=== PATIENT | male | born 1950 | race Caucasian/White ===

== ENCOUNTER → 2016-07-23 | Outpatient (CLI) | payer MEDICARE, MEDICAID ==
[2016-07-23 12:39] LABS: ALBUMIN 3.4 GM/DL (3.2-5.2); ALBUMIN/GLOBULIN RATIO 1.03 (1.00-1.93); ALKALINE PHOSPHATASE 98 U/L (45-117); ALT/SGPT 31 U/L (12-78); ANION GAP 6 MEQ/L (8-16); AST/SGOT 27 U/L (15-37); BILIRUBIN,TOTAL 0.4 MG/DL (0.2-1.0); BLOOD UREA NITROGEN 15 MG/DL (7-18); CALCIUM LEVEL 8.5 MG/DL (8.8-10.2); CARBON DIOXIDE LEVEL 29 MEQ/L (21-32); CHLORIDE LEVEL 105 MEQ/L (98-107); CHOLESTEROL LEVEL 142 MG/DL (<200); CREATININE FOR GFR 0.65 MG/DL (0.70-1.30); GLOMERULAR FILTRATION RATE > 60.0 (>49); GLUCOSE, FASTING 90 MG/DL (80-110); SODIUM LEVEL 140 MEQ/L (136-145); TOTAL PROTEIN 6.7 GM/DL (6.4-8.2); TRIGLYCERIDES LEVEL 52 MG/DL (<150)
== END ==
LOC: M LAB 11:28
PROVIDERS: ATTEND Family Medicine Addiction Medicine
DX: E78.5 Hyperlipidemia, unspecified (principal)

== ENCOUNTER 2016-09-21 13:41 | Observation (INO) | payer MEDICARE, MEDICAID ==
[~2016-09-21] VITALS: Ht 180.3 cm; Wt 127.5 kg
[2016-09-21 14:33] LABS: BASO % 0.3 % (0.0-1.0); EOS # 0.1 K/mm3 (0.0-0.50); EOS % 1.8 % (0.0-3.0); LARGE UNSTAINED CELL # 0.1 K/mm3 (0.0-0.4); LARGE UNSTAINED CELL % 1.8 % (0.0-4.0); LYMPH % 25.2 % (24.0-44.0); MEAN CORPUSCULAR HEMOGLOBIN 30.5 pg (27.0-33.0); MEAN CORPUSCULAR HGB CONC 33.1 g/dl (32.0-36.5); MEAN CORPUSCULAR VOLUME 92.3 fl (80.0-96.0); MONO # 0.4 K/mm3 (0.0-0.8); MONO % 5.4 % (0.0-5.0); NEUTROPHILS # 4.9 K/mm3 (1.8-7.7); NEUTROPHILS % 65.5 % (36.0-66.0); PLATELET COUNT, AUTOMATED 212 k/mm3 (150-450); RED CELL DISTRIBUTION WIDTH 12.5 % (11.5-14.5); WHITE BLOOD COUNT 7.5 K/mm3 (4.0-10.0)
[2016-09-21 14:38] LABS: INR 0.95
[2016-09-21 14:49] LABS: ANION GAP 7 MEQ/L (8-16); BLOOD UREA NITROGEN 15 MG/DL (7-18); CARBON DIOXIDE LEVEL 30 MEQ/L (21-32); CHLORIDE LEVEL 108 MEQ/L (98-107); CREATININE FOR GFR 0.77 MG/DL (0.70-1.30); GLOMERULAR FILTRATION RATE > 60.0 (>49); GLUCOSE, FASTING 121 MG/DL (80-110); POTASSIUM SERUM 3.9 MEQ/L (3.5-5.1); SODIUM LEVEL 145 MEQ/L (136-145)
--- NOTE | 2016-09-21 14:58 | REP ---
CT BRAIN WITHOUT CONTRAST: HISTORY: Expressive and fascia. COMPARISON STUDY: May 14, 2007. FINDINGS: The patient was unable to fully cooperate and CT scanning is acquired with the head rotated to the right somewhat. No bony calvarial lesion is seen. The visualized paranasal sinuses are clear. No intraorbital abnormality is seen. On soft tissue window settings, there is minimal diffuse cerebral atrophy. There is no evidence of intracranial hemorrhage. There is some mild vascular calcification. No infarct, mass, extra-axial fluid collection, or midline shift is seen. IMPRESSION: Minimal diffuse atrophy and vascular calcification. No acute intracranial abnormality. Signed by Yoan Hauser MD 09/21/2016 04:40 P
[2016-09-21] MEDS ORDERED: ASPIRIN 325 MG TAB PO ONE (15:15)
[2016-09-21] MEDS ORDERED: LORazepam 2 MG/ML VIAL (J2060) IM STA (16:46)
[2016-09-21 17:25] VITALS: BP 146/77
[2016-09-21 18:17] LABS: ERYTHROCYTE SEDIMENTATION RATE 26 mm/hr (0-20)
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
[2016-09-21 20:00] VITALS: BP 172/82
--- NOTE | 2016-09-21 21:00 | ECGEPIP ---
Stationary ECG Study [facility] - ED Test Date: 2016-09-21 Pat Name: GURPREET LOPEZ Department: Room: - Gender: M [employer] Helper: tk : 1950 Requested By: LIS Zamora Order Number: [id number] Reading MD: Kellen Barone Measurements Intervals [place] Rate: 79 P: 22 MA: 191 QRS: 34 QRSD: 100 T: 10 QT: 354 QTc: 407 Interpretive Statements SINUS RHYTHM PROBABLE INFERIOR MYOCARDIAL INFARCTION, PROBABLY OLD NO PRIOR FOR COMPARISON Electronically Signed On 09-21-2016 21:00:03 EDT by Kellen Barone
[2016-09-21 23:59] VITALS: BP 139/78
[2016-09-22 04:12] LABS: MEAN CORPUSCULAR HEMOGLOBIN 31.1 pg (27.0-33.0); MEAN CORPUSCULAR HGB CONC 33.7 g/dl (32.0-36.5); MEAN CORPUSCULAR VOLUME 92.4 fl (80.0-96.0); RED CELL DISTRIBUTION WIDTH 12.3 % (11.5-14.5); WHITE BLOOD COUNT 7.3 K/mm3 (4.0-10.0)
[2016-09-22 04:34] LABS: ANION GAP 6 MEQ/L (8-16); BLOOD UREA NITROGEN 12 MG/DL (7-18); CALCIUM LEVEL 8.8 MG/DL (8.8-10.2); CARBON DIOXIDE LEVEL 28 MEQ/L (21-32); CHLORIDE LEVEL 107 MEQ/L (98-107); CHOLESTEROL LEVEL 148 MG/DL (<200); CREATININE FOR GFR 0.67 MG/DL (0.70-1.30); GLOMERULAR FILTRATION RATE > 60.0 (>49); GLUCOSE, FASTING 107 MG/DL (80-110); POTASSIUM SERUM 3.5 MEQ/L (3.5-5.1); SODIUM LEVEL 141 MEQ/L (136-145); TRIGLYCERIDES LEVEL 78 MG/DL (<150)
[2016-09-22 04:45] VITALS: BP 142/80
[2016-09-22 08:00] VITALS: BP 158/78
--- NOTE | 2016-09-22 08:00 | REP ---
Clinical: Transient ischemic attack. Technique: Calhoun scale and color Doppler evaluation using linear high frequency transducer Findings: Two-dimensional calhoun scale and color images demonstrate mild mixed atheromatous plaquing from the common carotid arteries through the carotid bulbs and proximal internal carotid arteries. Patent arterial lumen with laminar flow is appreciated with no significant narrowing. Color Doppler interrogation demonstrates normal arterial wave patterns and velocities with no significant spectral broadening. Normal flow direction is appreciated in the bilateral vertebral arteries. RIGHT (cm/s) LEFT (cm/s) ICA peak systolic velocity 49.5 63.4 ICA diastolic velocity 16.2 22.2 ECA peak systolic velocity 92.7 74.7 CCA peak systolic velocity 107.6 129.5 ICA/CCA ratio 0.46 0.49 Impression: No hemodynamically significant areas of narrowing or stenosis appreciated. Based on set standards narrowing falls within the less than 50% range. Signed by Isiah Fragoso MD 09/22/2016 07:51 A
[2016-09-22] MEDS ORDERED: SIMVASTATIN 40 MG TAB PO SCH (09:00)
[2016-09-22] MEDS ORDERED: ASPIRIN 325 MG TAB PO SCH (09:00)
--- NOTE | 2016-09-23 07:29 | DSES ---
DATE OF ADMISSION: 09/21/2016 DATE OF DISCHARGE: 09/22/2016 Patient signed against medical advice (AMA). PRIMARY CARE PHYSICIAN: Patient does not have primary care physician. CONSULTANTS: None. PROCEDURES: None. DISCHARGE MEDICATIONS: None. PRIMARY DIAGNOSIS: Possible transient ischemic attack (TIA). SECONDARY DIAGNOSIS: None. HOSPITAL COURSE: Mr Myers is a 65-year-old male who presented to the emergency room (ER) due to complaint of right arm weakness, numbness, slurred speech that started in the afternoon of the day of admission. Patient had a CT of the head which shows minimal diffuse atrophy and vascular calcification; however, no acute intracranial abnormality was found. Patient also had a carotid duplex which indicted no hemodynamic significant areas of narrowing or stenosis appreciated. Also, patient received one dose of aspirin 325. Due to patient being claustrophobic, patient received one dose of Ativan [address]. On admission, there was an order for MRI/MRA; however, patient refused to perform those imaging techniques and expressed that he has to leave and he signed AMA in the morning. Patient says that he may be back on Saturday to perform these tests, however, he would like to have them as an open MRI since patient is claustrophobic. The risk of leaving hospital and benefit of staying in the hospital were discussed with the patient in detail; however, patient signed AMA and left the hospital. DISCHARGE PLACEMENT: Patient signed AMA. FOLLOWUP: Please follow with your primary care as soon as possible. ACTIVITY: As followed by patient. My preceptor for this patient encounter was Dr. Rachel Madrid. The preceptor was physically present in the building during the encounter and was fully available. As needed, all aspects of the patient interview, examination, medical decision making process, and medical care plan development were reviewed and approved by the preceptor. The preceptor is aware and concurs with the plan as stated in the body of this note and will attest to such by his/her cosignature. I, Rachel Madrid, have both independently examined this patient as well as reviewed the documentation. I have discussed in detail with the resident the findings and plan of treatment as documented in the residents documentation. I will continue to follow the patient and offer further guidance to the patients care as necessary. ONEL
== END 2016-09-22 08:33 | disposition left against medical advice (07) ==
LOC: M ED 13:41 → M ED INP 15:59 → M PCU 17:24
PROVIDERS: ADMIT Internal Medicine; ATTEND Internal Medicine
DX: R53.1 Weakness (principal); R20.0 Anesthesia of skin; R47.81 Slurred speech; Z91.81 History of falling
CPT/HCPCS: 36415; 70450; 80048; 80061; 82550; 82553; 84484; 85025; 85027; 85610; 85652; 85730; 86140; 86850; 86900; 86901; 93005; 93041; 93880; 94760; 99285; G0378

== ENCOUNTER → 2016-11-26 | Outpatient (CLI) | payer MEDICARE, MEDICAID ==
--- NOTE | 2016-11-26 17:08 | REP ---
Clinical: Trauma. Injury. Technique: AP, lateral, bilateral oblique views of the left elbow. Findings: Lateral view demonstrates elevation to the anterior fat pad suggesting joint effusion. Moderate arthritic degenerative changes include joint space narrowing with subchondral sclerosis and subtle marginal osteophyte formation. No definite acute fracture identified. Impression: Moderate arthritic degenerative changes and possible acute versus chronic joint effusion. No obvious acute fracture identified by radiographic evaluation. Signed by Isiah Fragoso MD 11/26/2016 04:59 P
== END ==
LOC: M RAD 16:16 → EDSTATUS 16:26 → M RAD 16:26
PROVIDERS: ATTEND Physician Assistant
DX: M19.022 Primary osteoarthritis, left elbow (principal); M25.422 Effusion, left elbow

== ENCOUNTER → 2017-06-19 | Outpatient (CLI) | payer MEDICARE, MEDICAID ==
[2017-06-19 13:28] LABS: BASO % 0.4 % (0.0-1.0); EOS # 0.1 10^3/uL (0.0-0.50); EOS % 1.9 % (0.0-3.0); HEMATOCRIT 42.2 % (42.0-52.0); IMMATURE GRANULOCYTE % 0.4 % (0-3.0); LYMPH # 2.2 10^3/uL (1.5-4.5); LYMPH % 31.9 % (24.0-44.0); MEAN CORPUSCULAR HEMOGLOBIN 30.1 pg (27.0-33.0); MEAN CORPUSCULAR HGB CONC 33.2 g/dl (32.0-36.5); MEAN CORPUSCULAR VOLUME 90.8 fl (80.0-96.0); MONO # 0.6 10^3/uL (0.0-0.8); MONO % 8.5 % (0.0-5.0); NEUTROPHILS % 56.9 % (36.0-66.0); PLATELET COUNT, AUTOMATED 187 10^3/uL (150-450); RED BLOOD COUNT 4.65 10^6/uL (4.30-6.10); RED CELL DISTRIBUTION WIDTH 12.9 % (11.5-14.5)
[2017-06-19 14:05] LABS: TOTAL 25(OH) VITAMIN D 21.6 NG/ML (30.0-100.0)
[2017-06-19 14:06] LABS: ALBUMIN 3.7 GM/DL (3.2-5.2); ALKALINE PHOSPHATASE 101 U/L (45-117); ALT/SGPT 25 U/L (12-78); ANION GAP 7 MEQ/L (8-16); AST/SGOT 20 U/L (7-37); BILIRUBIN,TOTAL 0.3 MG/DL (0.2-1.0); BLOOD UREA NITROGEN 22 MG/DL (7-18); CALCIUM LEVEL 8.8 MG/DL (8.8-10.2); CARBON DIOXIDE LEVEL 29 MEQ/L (21-32); CHLORIDE LEVEL 107 MEQ/L (98-107); CHOLESTEROL LEVEL 138 MG/DL (<200); CHOLESTEROL RISK RATIO 1.971 (<5); CREATININE FOR GFR 0.67 MG/DL (0.70-1.30); GLOMERULAR FILTRATION RATE > 60.0 (>49); GLUCOSE, FASTING 92 MG/DL (70-100); HDL CHOLESTEROL 70 MG/DL (>40); LDL CHOLESTEROL 59.2 MG/DL (<100); NON-HDL-C 68 MG/DL; POTASSIUM SERUM 4.1 MEQ/L (3.5-5.1); SODIUM LEVEL 143 MEQ/L (136-145); THYROID STIMULATING HORMONE 0.979 uIU/ML (0.358-3.740); TOTAL PROTEIN 7.4 GM/DL (6.4-8.2); TRIGLYCERIDES LEVEL 44 MG/DL (<150)
== END ==
LOC: M LAB 12:48
DX: Z00.01 Encounter for general adult medical examination with abnormal findings (principal); D64.9 Anemia, unspecified; Z82.49 Family history of ischemic heart disease and other diseases of the circulatory system
CPT/HCPCS: 84443

== ENCOUNTER → 2018-07-11 | Outpatient (CLI) | payer MEDICARE, MEDICAID ==
[2018-07-11 14:27] LABS: BASO % 0.3 % (0.0-1.0); EOS # 0.2 10^3/uL (0.0-0.50); EOS % 2.8 % (0.0-3.0); HEMATOCRIT 42.5 % (42.0-52.0); HEMOGLOBIN 13.7 g/dl (13.5-17.5); LYMPH # 2.2 10^3/uL (1.5-4.5); LYMPH % 30.4 % (24.0-44.0); MEAN CORPUSCULAR HEMOGLOBIN 29.3 pg (27.0-33.0); MEAN CORPUSCULAR HGB CONC 32.2 g/dl (32.0-36.5); MONO # 0.6 10^3/uL (0.0-0.8); MONO % 8.2 % (0.0-5.0); NEUTROPHILS # 4.2 10^3/uL (1.8-7.7); NEUTROPHILS % 57.9 % (36.0-66.0); PLATELET COUNT, AUTOMATED 230 10^3/uL (150-450); RED BLOOD COUNT 4.67 10^6/uL (4.30-6.10); WHITE BLOOD COUNT 7.2 10^3/uL (4.0-10.0)
[2018-07-11 15:03] LABS: CHOLESTEROL RISK RATIO 2.358 (<5); THYROID STIMULATING HORMONE 0.973 uIU/ML (0.358-3.740); TOTAL 25(OH) VITAMIN D 24.5 NG/ML (30.0-100.0)
== END ==
LOC: M LAB 12:38
PROVIDERS: ATTEND Family Medicine Addiction Medicine
DX: Z00.01 Encounter for general adult medical examination with abnormal findings (principal); D64.9 Anemia, unspecified; E55.9 Vitamin D deficiency, unspecified

== ENCOUNTER → 2019-07-20 | Outpatient (CLI) | payer MEDICARE, OTHER, MEDICAID ==
[2019-07-20 13:36] LABS: BASO % 0.6 % (0.0-1.0); EOS # 0.2 10^3/uL (0.0-0.5); EOS % 2.5 % (0.0-3.0); HEMATOCRIT 42.2 % (42.0-52.0); HEMOGLOBIN 13.9 g/dl (13.5-17.5); LYMPH # 2.3 10^3/uL (1.5-5.0); LYMPH % 32.5 % (24.0-44.0); MEAN CORPUSCULAR HEMOGLOBIN 30.5 pg (27.0-33.0); MEAN CORPUSCULAR HGB CONC 32.9 g/dl (32.0-36.5); MEAN CORPUSCULAR VOLUME 92.7 fl (80.0-96.0); MONO # 0.6 10^3/uL (0.0-0.8); MONO % 7.9 % (0.0-5.0); NEUTROPHILS % 56.2 % (36.0-66.0); PLATELET COUNT, AUTOMATED 192 10^3/uL (150-450); RED BLOOD COUNT 4.55 10^6/uL (4.30-6.10); WHITE BLOOD COUNT 7.2 10^3/uL (4.0-10.0)
--- NOTE | 2019-07-20 13:52 | REP ---
RIGHT KNEE, FIVE VIEWS: Five views of the right knee are performed. There is no acute fracture or dislocation. There is mild medial joint space narrowing and subchondral sclerosis. There is mild patellofemoral compartment narrowing and subchondral sclerosis. IMPRESSION: Mild degenerative changes. Electronically Signed by Davian Calhoun MD 07/20/2019 02:01 P
[2019-07-20 14:01] LABS: HEMOGLOBIN A1c 5.9 %
[2019-07-20 14:14] LABS: BLOOD UREA NITROGEN 16 MG/DL (7-18); CALCIUM LEVEL 8.7 MG/DL (8.8-10.2); CARBON DIOXIDE LEVEL 28 MEQ/L (21-32); CHLORIDE LEVEL 106 MEQ/L (98-107); GLOMERULAR FILTRATION RATE > 60.0 (>49); GLUCOSE, FASTING 84 MG/DL (70-100); POTASSIUM SERUM 4.1 MEQ/L (3.5-5.1); SODIUM LEVEL 143 MEQ/L (136-145)
[2019-07-20 14:15] LABS: ALBUMIN 3.5 GM/DL (3.2-5.2); ALT/SGPT 25 U/L (12-78); BILIRUBIN,TOTAL 0.5 MG/DL (0.2-1.0); CHOLESTEROL LEVEL 143 MG/DL (<200); CHOLESTEROL RISK RATIO 2.134 (<5); HDL CHOLESTEROL 67 MG/DL (>40); LDL CHOLESTEROL 65 MG/DL (<100); NON-HDL-C 76 MG/DL; TRIGLYCERIDES LEVEL 54 MG/DL (<150)
[2019-07-20 14:16] LABS: TOTAL 25(OH) VITAMIN D 20.6 NG/ML (30.0-100.0)
== END ==
LOC: M LAB 12:29
PROVIDERS: ATTEND Family Medicine
DX: M17.11 Unilateral primary osteoarthritis, right knee (principal); Z82.49 Family history of ischemic heart disease and other diseases of the circulatory system

== ENCOUNTER → 2021-12-06 | Outpatient (CLI) | payer OTHER, MEDICAID | LOC: M RAD 15:50 | PROVIDERS: ATTEND Family Medicine Addiction Medicine | DX: N50.89 Other specified disorders of the male genital organs (principal) ==

== ENCOUNTER → 2022-06-20 | Outpatient (CLI) | payer OTHER, MEDICAID | LOC: M RAD 10:00 | PROVIDERS: ATTEND Family Medicine Addiction Medicine | DX: M25.551 Pain in right hip (principal) ==

== ENCOUNTER → 2022-06-27 | Outpatient (CLI) | payer OTHER, MEDICAID | LOC: M EKG 15:07 | PROVIDERS: ATTEND Physician Assistant | DX: N43.3 Hydrocele, unspecified (principal) ==

== ENCOUNTER 2022-07-10 10:39 | Day surgery (SDC) | payer OTHER, MEDICAID ==
[~2022-07-10] VITALS: Ht 180.3 cm; Wt 128.4 kg
[~2022-07-10 10:39] MED LIST: LIDOCAINE 2% 100MG/5ML SDV (FOR ANES.) As Ordered ONE; MIDAZOLAM INJ 2MG/2ML VIAL As Ordered ONE; ROCURONIUM BROMIDE 50MG/5ML VIAL As Ordered ONE; fentaNYL 250 MCG/5 ML INJECTION As Ordered ONE; propofoL 200 MG/20 ML VIAL As Ordered ONE
[2022-07-10] MEDS ORDERED: LIDOCAINE 1% SDV 5ML VIAL SC PRN (11:40)
[2022-07-10] MEDS ORDERED: ceFAZolin SOD 2 GM in IV 1 EA IV ONE (11:40)
[2022-07-10] MEDS ORDERED: LR 1,000 ML IV SCH ×2 (11:40→16:45)
[2022-07-10] MEDS ORDERED: BUPIVACAINE/EPIN 0.25% 30ML VIAL As Ordered ONE (13:49)
[2022-07-10] MEDS ORDERED: ceFAZolin 2 GM/D5W 50 ML IV BAG As Ordered ONE (14:16)
[2022-07-10] MEDS ORDERED: DESFLURANE 240 ML INHALANT As Ordered ONE (14:20)
[2022-07-10] MEDS ORDERED: ACETAMINOPHEN 1000MG 100ML IV BAG As Ordered ONE (14:39)
[2022-07-10] MEDS ORDERED: ROCURONIUM BROMIDE 50MG/5ML VIAL As Ordered ONE (14:45)
[2022-07-10] MEDS ORDERED: GLYCOPYRROLATE INJ 0.2 MG/ML 2 ML VIAL As Ordered ONE (15:04)
[2022-07-10] MEDS ORDERED: propofoL 200 MG/20 ML VIAL As Ordered ONE (15:12)
[2022-07-10] MEDS ORDERED: KETOROLAC 60MG 2ML VIAL As Ordered ONE (16:01)
[2022-07-10] MEDS ORDERED: ONDANSETRON 4MG 2ML VIAL As Ordered ONE (16:02)
[2022-07-10] MEDS ORDERED: SUGAMMADEX SODIUM 500 MG/5 ML VIAL (BRIDION) As Ordered ONE (16:02)
[2022-07-10] MEDS ORDERED: HYDROmorphone HCL 2MG/ML 1ML VIAL As Ordered ONE (16:03)
[2022-07-10] MEDS ORDERED: fentaNYL 100 MCG/2 ML INJECTION IV PRN (16:45)
[2022-07-10] MEDS ORDERED: ONDANSETRON 4MG 2ML VIAL IV PRN (16:45)
[2022-07-10] MEDS ORDERED: oxyCODONE 5MG TAB PO PRN (16:45)
[2022-07-10] MEDS ORDERED: traMADol 50 MG TAB PO PRN (16:55)
[2022-07-10 19:30] VITALS: BP 155/74
== END 2022-07-10 19:40 | disposition home or self-care (01) ==
LOC: M SDC 10:39
PROVIDERS: ATTEND Surgery
DX: K40.30 Unilateral inguinal hernia, with obstruction, without gangrene, not specified as recurrent (principal); Z68.38 Body mass index [BMI] 38.0-38.9, adult
CPT/HCPCS: 49650; C1781; J0131; J0690; J1100; J1170; J1885; J2250; J2405; J3010; S2900

== ENCOUNTER → 2022-08-20 | Outpatient (REF) | payer OTHER, MEDICAID ==
[2022-08-20 13:35] LABS: ALBUMIN 3.4 G/DL (3.2-5.2); ALKALINE PHOSPHATASE 99 U/L (46-116); ALT/SGPT 18 U/L (7.0-40); AST/SGOT 17 U/L (<34); BILIRUBIN,TOTAL 0.4 MG/DL (0.3-1.2); BLOOD UREA NITROGEN 17 MG/DL (9-23); CALCIUM LEVEL 8.3 MG/DL (8.3-10.6); CARBON DIOXIDE LEVEL 30 MMOL/L (20-31); CHLORIDE LEVEL 106 MMOL/L (98-107); CHOLESTEROL LEVEL 130 MG/DL (<200); CHOLESTEROL RISK RATIO 2.13 (<5); CREATININE FOR GFR 0.67 MG/DL (0.70-1.30); GLOMERULAR FILTRATION RATE > 60.0 (>49); GLUCOSE, FASTING 87 MG/DL (74-106); LDL CHOLESTEROL 61.2 MG/DL (<100); POTASSIUM SERUM 4.3 MMOL/L (3.5-5.1); SODIUM LEVEL 142 MMOL/L (136-145); TOTAL PROTEIN 6.6 G/DL (5.7-8.2); TRIGLYCERIDES LEVEL 39 MG/DL (<150)
[2022-08-20 13:39] LABS: THYROID STIMULATING HORMONE 1.973 uIU/ML (0.55-4.78)
== END ==
LOC: M LAB REF 12:48
PROVIDERS: ATTEND Family Medicine Addiction Medicine
DX: I10 Essential (primary) hypertension (principal)

== ENCOUNTER → 2023-01-01 | Outpatient (CLI) | payer OTHER, MEDICAID | LOC: M WHC 13:16 | PROVIDERS: ATTEND Family Medicine Addiction Medicine | DX: M85.80 Other specified disorders of bone density and structure, unspecified site (principal) ==

== ENCOUNTER → 2024-04-01 | Outpatient (REF) | payer OTHER, MEDICAID ==
[2024-04-01 13:07] LABS: ALBUMIN 3.6 G/DL (3.2-5.2); ALKALINE PHOSPHATASE 108 U/L (40-129); ALT/SGPT 22 U/L (7.0-40); AST/SGOT 22 U/L (<34); BILIRUBIN,TOTAL 0.4 MG/DL (0.3-1.2); BLOOD UREA NITROGEN 16 MG/DL (9-23); CALCIUM LEVEL 9.2 MG/DL (8.3-10.6); CARBON DIOXIDE LEVEL 31 MMOL/L (20-31); CHLORIDE LEVEL 105 MMOL/L (98-107); CHOLESTEROL LEVEL 169 MG/DL (<200); CHOLESTEROL RISK RATIO 2.84 (<5); CREATININE FOR GFR 0.73 MG/DL (0.70-1.30); GLOMERULAR FILTRATION RATE > 60.0 (>42); GLUCOSE, FASTING 93 MG/DL (74-106); HDL CHOLESTEROL 59.4 MG/DL (>40); LDL CHOLESTEROL 91.2 MG/DL (<100); NON-HDL-C 109.6 MG/DL; POTASSIUM SERUM 4.6 MMOL/L (3.5-5.1); SODIUM LEVEL 142 MMOL/L (136-145); TOTAL PROTEIN 7.3 G/DL (5.7-8.2); TRIGLYCERIDES LEVEL 92 MG/DL (<150)
[2024-04-01 13:09] LABS: TOTAL 25(OH) VITAMIN D 31.3 NG/ML (20.0-100.0)
[2024-04-01 13:10] LABS: THYROID STIMULATING HORMONE 1.749 uIU/ML (0.55-4.78)
== END ==
LOC: M LAB REF 12:13
PROVIDERS: ATTEND Family Medicine Addiction Medicine
DX: I10 Essential (primary) hypertension (principal)

== ENCOUNTER 2025-02-26 14:06 | Inpatient (IN) | payer OTHER, MEDICAID ==
[~2025-02-26] VITALS: Ht 170.2 cm; Wt 121.4 kg
[2025-02-26 15:16] LABS: BASO # 0.1 10^3/uL (0.0-0.2); BASO % 0.6 % (0.0-1.0); EOS # 0.3 10^3/uL (0.0-0.5); EOS % 3.9 % (0.0-3.0); LYMPH # 1.3 10^3/uL (1.5-5.0); LYMPH % 16.5 % (24.0-44.0); MONO # 0.9 10^3/uL (0.0-0.8); MONO % 10.8 % (2.0-8.0); NEUTROPHILS # 5.4 10^3/uL (1.5-8.5); NEUTROPHILS % 67.8 % (36.0-66.0); PLATELET COUNT, AUTOMATED 283 10^3/uL (150-450)
[2025-02-26 15:47] LABS: C REACTIVE PROTEIN QUANTITATIV 5.41 MG/DL (<1.0)
[2025-02-26 16:00] LABS: ALT/SGPT 19 U/L (7.0-40); AST/SGOT 28 U/L (<34); CALCIUM LEVEL 8.5 MG/DL (8.3-10.6); CARBON DIOXIDE LEVEL 29 MMOL/L (20-31); CHLORIDE LEVEL 106 MMOL/L (98-107); CREATININE FOR GFR 0.70 MG/DL (0.70-1.30); GLOMERULAR FILTRATION RATE > 90.0 (>42); POTASSIUM SERUM 4.5 MMOL/L (3.5-5.1); SODIUM LEVEL 141 MMOL/L (136-145)
[2025-02-26] MEDS ORDERED: HOME MED LIST COMPLETE! XX SCH (16:05)
[2025-02-26] MEDS ORDERED: ISOVUE-370 76% 100 ML VIAL As Ordered ONE (16:12)
[2025-02-26] MEDS: VANCOMYCIN HCL 2,000 MG, VIAL MATE ADAPTER 1 EACH in NS 500 ML IV ONE (17:49)
[2025-02-26] MEDS ORDERED: RAMELTEON 8 MG TAB PO PRN (19:10)
[2025-02-26] MEDS ORDERED: ACETAMINOPHEN 500 MG TAB PO PRN (19:10)
[2025-02-26 19:30] LABS: CHOLESTEROL LEVEL 120 MG/DL (<200); CHOLESTEROL RISK RATIO 1.83 (<5); LDL CHOLESTEROL 45.3 MG/DL (<100); NON-HDL-C 54.7 MG/DL; TRIGLYCERIDES LEVEL 47 MG/DL (<150)
[2025-02-26 19:31] LABS: ESTIMATED AVERAGE GLUCOSE 117.0 MG/DL (60-110)
[2025-02-26] MEDS: FUROSEMIDE 20 MG/2 ML VIAL IV SCH (19:34)
[2025-02-26 20:28] VITALS: BP 154/74; TEMP 99.6; O2SAT 97
[2025-02-26] MEDS: PIPERACILLIN/TAZOBACTAM SOD 3.375 GM in DEXTROSE 5% (D5W) ADV/MINI-BAG 50 ML IV SCH (21:46)
[2025-02-26] MEDS: HEPARIN SOD 5000 UNITS/ML 1 ML VIAL/SYRINGE SC SCH (21:47)
[2025-02-27 00:44] VITALS: BP 132/70; TEMP 98.4; O2SAT 96
[2025-02-27] MEDS: VANCOMYCIN HCL 1,250 MG, VIAL MATE ADAPTER 1 EACH in NS 250 ML IV SCH (02:14)
[2025-02-27 03:12] VITALS: BP 126/58; TEMP 98.5; O2SAT 95
[2025-02-27 06:09] LABS: PLATELET COUNT, AUTOMATED 260 10^3/uL (150-450)
[2025-02-27 06:32] LABS: CALCIUM LEVEL 8.1 MG/DL (8.3-10.6); CARBON DIOXIDE LEVEL 27 MMOL/L (20-31); CHLORIDE LEVEL 106 MMOL/L (98-107); CREATININE FOR GFR 0.73 MG/DL (0.70-1.30); GLOMERULAR FILTRATION RATE > 90.0 (>42); POTASSIUM SERUM 3.8 MMOL/L (3.5-5.1); SODIUM LEVEL 142 MMOL/L (136-145)
[2025-02-27 08:07] VITALS: BP 125/58; TEMP 98.6; O2SAT 96
[2025-02-27] MEDS ORDERED: VANCOMYCIN HCL 1,000 MG, VIAL MATE ADAPTER 1 EACH in NS 250 ML IV SCH (09:00)
[2025-02-27 11:55] VITALS: BP 117/58; TEMP 98.2; O2SAT 95
[2025-02-27] MEDS: FUROSEMIDE 20 MG/2 ML VIAL IV SCH (16:56)
[2025-02-27 20:56] VITALS: BP 118/56; TEMP 98.4; O2SAT 94
[2025-02-28 03:22] VITALS: BP 116/57; TEMP 97.9; O2SAT 98
[2025-02-28 05:43] LABS: PLATELET COUNT, AUTOMATED 241 10^3/uL (150-450)
[2025-02-28 06:08] LABS: CALCIUM LEVEL 8.3 MG/DL (8.3-10.6); CARBON DIOXIDE LEVEL 30 MMOL/L (20-31); CHLORIDE LEVEL 105 MMOL/L (98-107); CREATININE FOR GFR 0.89 MG/DL (0.70-1.30); GLOMERULAR FILTRATION RATE > 90.0 (>42); POTASSIUM SERUM 4.1 MMOL/L (3.5-5.1); SODIUM LEVEL 142 MMOL/L (136-145)
[2025-02-28 11:47] VITALS: BP 145/68; TEMP 98.3; O2SAT 90
[2025-02-28 21:31] VITALS: BP 138/63; TEMP 98.4; O2SAT 97
[2025-03-01 03:14] VITALS: BP 136/65; TEMP 98.4; O2SAT 97
[2025-03-01 07:15] LABS: PLATELET COUNT, AUTOMATED 282 10^3/uL (150-450)
[2025-03-01 07:45] LABS: CALCIUM LEVEL 8.3 MG/DL (8.3-10.6); CARBON DIOXIDE LEVEL 29 MMOL/L (20-31); CHLORIDE LEVEL 105 MMOL/L (98-107); CREATININE FOR GFR 0.85 MG/DL (0.70-1.30); GLOMERULAR FILTRATION RATE > 90.0 (>42); POTASSIUM SERUM 4.2 MMOL/L (3.5-5.1); SODIUM LEVEL 142 MMOL/L (136-145)
[2025-03-01 12:00] VITALS: BP 132/64; TEMP 98; O2SAT 95
[2025-03-01 20:03] VITALS: BP 122/70; TEMP 98.4; O2SAT 96
[2025-03-02 03:53] VITALS: BP 135/65; TEMP 98.3; O2SAT 97
[2025-03-02 06:23] LABS: PLATELET COUNT, AUTOMATED 276 10^3/uL (150-450)
[2025-03-02 06:49] LABS: CALCIUM LEVEL 8.5 MG/DL (8.3-10.6); CARBON DIOXIDE LEVEL 29 MMOL/L (20-31); CHLORIDE LEVEL 106 MMOL/L (98-107); CREATININE FOR GFR 0.86 MG/DL (0.70-1.30); GLOMERULAR FILTRATION RATE > 90.0 (>42); POTASSIUM SERUM 4.2 MMOL/L (3.5-5.1); SODIUM LEVEL 143 MMOL/L (136-145)
[2025-03-02 21:25] VITALS: BP 136/62; TEMP 98; O2SAT 94
[2025-03-03 05:20] VITALS: BP 124/61; TEMP 99.7; O2SAT 94
[2025-03-03 06:27] LABS: PLATELET COUNT, AUTOMATED 276 10^3/uL (150-450)
[2025-03-03 06:50] LABS: CALCIUM LEVEL 8.4 MG/DL (8.3-10.6); CARBON DIOXIDE LEVEL 30 MMOL/L (20-31); CHLORIDE LEVEL 107 MMOL/L (98-107); CREATININE FOR GFR 0.89 MG/DL (0.70-1.30); GLOMERULAR FILTRATION RATE > 90.0 (>42); POTASSIUM SERUM 4.0 MMOL/L (3.5-5.1); SODIUM LEVEL 142 MMOL/L (136-145)
[2025-03-03 09:35] VITALS: BP 132/61
[2025-03-03] MEDS ORDERED: LEVO75TAB PO (10:30)
== END 2025-03-03 11:52 | disposition home health service (06) | DRG 300 ==
LOC: EDBD 14:06 → M ED 14:06 → M ED INP 19:20 → M MSPAV 20:13
PROVIDERS: ADMIT Student in an Organized Health Care Education/Training Program; ATTEND Internal Medicine
DX: I83.228 Varicose veins of left lower extremity with both ulcer of other part of lower extremity and inflammation (principal); Z68.41 Body mass index [BMI] 40.0-44.9, adult; L97.828 Non-pressure chronic ulcer of other part of left lower leg with other specified severity; L03.116 Cellulitis of left lower limb; E66.01 Morbid (severe) obesity due to excess calories; I89.0 Lymphedema, not elsewhere classified; I44.0 Atrioventricular block, first degree; R00.0 Tachycardia, unspecified